=== PATIENT | male | born 1940 | race Caucasian/White ===

== ENCOUNTER 2019-01-03 09:38 | Inpatient (IN) | payer MEDICARE, OTHER ==
[~2019-01-03] VITALS: Ht 188 cm; Wt 95.0 kg
[~2019-01-03 09:38] MED LIST: ACET1TAB14 PO; CYAN-51 PO; DOCU-28 PO; ENOX40SY7 SQ; LISI-604 PO; MULT1TAB74 PO; SIMV80TA2 PO; SOTA80TA PO; WARF-55 PO
[2019-01-03 10:23] LABS: BASOPHILS % (AUTO) 0.4 % (0-1); EOSINOPHILS # (AUTO) 0.1 X10'3 (0-0.9); EOSINOPHILS % (AUTO) 1.1 % (0-6); HEMATOCRIT 38.7 % (42.0-52.0); HEMOGLOBIN 13.4 g/dl (14.0-17.9); LYMPHOCYTES # (AUTO) 0.7 X10'3 (1.1-4.8); LYMPHOCYTES % (AUTO) 9.2 % (21-51); MEAN CORPUSCULAR HEMOGLOBIN 33.7 PG (27.0-31.0); MEAN CORPUSCULAR HGB CONC 34.6 g/dL (33.0-36.5); MEAN CORPUSCULAR VOLUME 97.5 FL (78-98); MEAN PLATELET VOLUME 7.1 FL (7.4-10.4); MONOCYTES # (AUTO) 0.9 X10'3 (0-0.9); MONOCYTES % (AUTO) 11.1 % (2-12); NEUTROPHILS # (AUTO) 6.3 X10'3 (1.8-7.7); NEUTROPHILS % (AUTO) 78.2 % (42-75); PLATELET COUNT 172 X10'3 (140-440); RED BLOOD COUNT 3.97 X10'6 (4.70-6.10); RED CELL DISTRIBUTION WIDTH 14.3 % (11.5-14.5); WHITE BLOOD COUNT 8.1 X10'3 (4.5-11.0)
[2019-01-03 10:54] LABS: PARTIAL THROMBOPLASTIN TIME 45 SECONDS (22-32)
[2019-01-03 10:56] LABS: ALANINE AMINOTRANSFERASE 60 U/L (12-78); ALBUMIN/GLOBULIN RATIO 0.8 (1.1-1.5); ALKALINE PHOSPHATASE 73 IU/L (46-116); ANION GAP 11 (8-16); ASPARTATE AMINO TRANSFERASE 67 U/L (10-37); BILIRUBIN,TOTAL 1.2 MG/DL (0.1-1.0); BLOOD UREA NITROGEN 7 MG/DL (7-18); BUN/CREATININE RATIO 7.3 (5.4-32.0); CALCIUM 8.3 MG/DL (8.5-10.1); CHLORIDE 102 MMOL/L (99-107); CREATININE 0.96 MG/DL (0.60-1.10); GLUCOSE 114 MG/DL (70-104); MAGNESIUM 2.1 MG/DL (1.5-2.4); SODIUM 138 MMOL/L (135-145); TOTAL PROTEIN 6.9 G/DL (6.4-8.2); eGFR 76 ML/MIN
[2019-01-03] MEDS ORDERED: azithromycin/NS 500mg/250ml 250 ML IV ONE (11:05)
[2019-01-03] MEDS ORDERED: normal saline 1000ML IV soln IV ONE (11:05)
[2019-01-03] MEDS ORDERED: CefTRIAXone/D5W-Rocephin 1gm 50 ML IV ONE (11:05)
[2019-01-03] MEDS ORDERED: potassium Cl 20 mEq SR tablet PO STA (11:09)
[2019-01-03 11:10] LABS: POTASSIUM 2.7 MMOL/L (3.5-5.1)
[2019-01-03] MEDS ORDERED: potassium Cl 10 mEq/100mL bag IV ONE (11:10)
[2019-01-03 11:16] LABS: URINE AMPHETAMINE SCREEN NEGATIVE (Neg); URINE BARBITUATE SCREEN NEGATIVE (Neg); URINE BENZODIAZEPINES SCREEN NEGATIVE (Neg); URINE CANNABINOID SCREEN POSITIVE (Neg); URINE COCAINE SCREEN NEGATIVE (Neg); URINE METHADONE SCREEN NEGATIVE (Neg); URINE OPIATE SCREEN POSITIVE (Neg); URINE PHENCYCLIDINE SCREEN NEGATIVE (Neg)
--- NOTE | 2019-01-03 11:21 | NUR ---
Pt. transferred to CT scan assisted by [employer] at this time.
[2019-01-03 11:22] LABS: ETHANOL < 0.010 GM/DL (0.0-0.010)
--- NOTE | 2019-01-03 11:31 | NUR ---
PT. BACK FROM CT VIA W/C WITH COMPUTER FORENSIC SPECIALIST
[2019-01-03] MEDS ORDERED: acetaminophen 325mg tablet PO PRN (12:10)
[2019-01-03] MEDS ORDERED: magnesium 4gm in 100ml NS 100 ML IV PRN (12:10)
[2019-01-03] MEDS ORDERED: docusate sod 100mg capsule PO PRN (12:10)
[2019-01-03] MEDS ORDERED: potassium CL 10mEq/100ml bag 100 ML IV PRN ×2 (12:10)
[2019-01-03] MEDS ORDERED: ipratropium/albuterol 3ml nebule NEB PRN (12:10)
[2019-01-03] MEDS ORDERED: potassium Cl 20 mEq SR tablet PO PRN (12:10)
[2019-01-03] MEDS ORDERED: mag hydrox/Alum hydrox/simeth 30ml oral suspension PO PRN (12:10)
[2019-01-03] MEDS ORDERED: morphine 2 MG/ML inj. syringe IV PRN (12:10)
[2019-01-03] MEDS ORDERED: ondansetron/PF 4mg/2ml inj IV PRN (12:10)
[2019-01-03] MEDS ORDERED: magnesium 2GM in 50ml NS 50 ML IV PRN (12:10)
[2019-01-03] MEDS ORDERED: ISOS30TA6 PO (12:31)
[2019-01-03] MEDS ORDERED: RANO500T3 PO (12:31)
[2019-01-03] MEDS ORDERED: ROSU10TA2 PO (12:31)
[2019-01-03] MEDS ORDERED: ASCO500C15 PO (12:36)
--- NOTE | 2019-01-03 12:52 | NUR ---
relieving RN for lunch, pt is resting quietly on gurney, waiting for bed assignment
[2019-01-03] MEDS ORDERED: acetaminophen w/codeine (60MG) #4 tablet PO PRN (13:45)
[2019-01-03] MEDS: morphine 2 MG/ML inj. syringe IV PRN ×2 (14:11→21:17)
[2019-01-03 16:03] VITALS: BP 125/67
[2019-01-03 18:00] VITALS: BP 130/76
--- NOTE | 2019-01-03 18:53 | NUR ---
GAVE REPORT TO KELLY CAPONE.
[2019-01-03] MEDS: lactobacillus rhamnosus 10,000 MMU CELLS/CAPSULE PO SCH (19:31)
[2019-01-03] MEDS: sotalol 80mg tablet PO SCH (19:31)
[2019-01-03] MEDS: ranolazine 500mg SR tablet (Q12H) PO SCH (19:31)
[2019-01-03] MEDS: potassium Cl 20 mEq SR tablet PO PRN ×2 (19:31→23:09)
[2019-01-03] MEDS ORDERED: warfarin 5mg tablet PO ONE (21:00)
[2019-01-03] MEDS: diatr meglu/diatrizoate 30ml oral sol.-(3 dose) bottle PO SCH (21:26)
[2019-01-03 22:00] VITALS: BP 117/84
[2019-01-04] VITALS (7 sets, daily range): BP systolic 104–120; BP diastolic 57–81
[2019-01-04] MEDS: morphine 2 MG/ML inj. syringe IV PRN ×2 (02:38→11:59)
--- NOTE | 2019-01-04 03:36 | NUR ---
tele reported svt for 7 seconds. patient asymptomatic. VSS.
--- NOTE | 2019-01-04 06:15 | NUR ---
Patient in room ORTH[facility] 4020. I have received report from Aliza CAPONE and had the opportunity to ask questions and assume patient care.
--- NOTE | 2019-01-04 06:27 | NUR ---
reported to days. noted pt awaiting CT abd and MRI today. EEG completed yesterday awaiting results
[2019-01-04 06:36] LABS: BASOPHILS % (AUTO) 0.5 % (0-1); EOSINOPHILS # (AUTO) 0.1 X10'3 (0-0.9); EOSINOPHILS % (AUTO) 2.1 % (0-6); HEMATOCRIT 34.8 % (42.0-52.0); HEMOGLOBIN 12.1 g/dl (14.0-17.9); LYMPHOCYTES # (AUTO) 0.8 X10'3 (1.1-4.8); LYMPHOCYTES % (AUTO) 13.1 % (21-51); MEAN CORPUSCULAR HGB CONC 34.8 g/dL (33.0-36.5); MEAN CORPUSCULAR VOLUME 97.7 FL (78-98); MEAN PLATELET VOLUME 7.9 FL (7.4-10.4); MONOCYTES # (AUTO) 0.6 X10'3 (0-0.9); MONOCYTES % (AUTO) 10.2 % (2-12); NEUTROPHILS # (AUTO) 4.6 X10'3 (1.8-7.7); NEUTROPHILS % (AUTO) 74.1 % (42-75); PLATELET COUNT 156 X10'3 (140-440); RED BLOOD COUNT 3.56 X10'6 (4.70-6.10); RED CELL DISTRIBUTION WIDTH 14.6 % (11.5-14.5); WHITE BLOOD COUNT 6.1 X10'3 (4.5-11.0)
[2019-01-04] MEDS: diatr meglu/diatrizoate 30ml oral sol.-(3 dose) bottle PO SCH ×2 (07:42→10:04)
[2019-01-04] MEDS ORDERED: non-formulary drug (Rosuvastatin Calcium* (Crestor*) 1 TAB) PO SCH (08:00)
[2019-01-04] MEDS ORDERED: non-formulary drug (Multivitamins 1 TAB) PO SCH (08:00)
[2019-01-04] MEDS: K and/or MAG REPLACEMENT MC SCH (08:00)
[2019-01-04] MEDS ORDERED: lisinopril 5mg tablet PO SCH (08:00)
[2019-01-04] MEDS ORDERED: non-formulary drug (Ascorbic Acid (Vitamin C) 1 CAP) PO SCH (08:00)
[2019-01-04] MEDS: cyanocobalamin 500mcg tablet PO SCH (08:04)
[2019-01-04] MEDS: multivitamins, therapeutics tablet PO SCH (08:04)
[2019-01-04] MEDS: lactobacillus rhamnosus 10,000 MMU CELLS/CAPSULE PO SCH ×2 (08:04→20:43)
[2019-01-04] MEDS: ascorbic acid 500mg tablet PO SCH (08:04)
[2019-01-04] MEDS: isosorbide mononitrate 30mg tab.SR.24H PO SCH (08:05)
[2019-01-04] MEDS: atorvastatin 20mg tablet PO SCH (08:05)
[2019-01-04] MEDS: sotalol 80mg tablet PO SCH ×2 (08:05→20:43)
[2019-01-04] MEDS: ranolazine 500mg SR tablet (Q12H) PO SCH ×2 (08:12→20:44)
[2019-01-04] MEDS ORDERED: iohexol 300mg/ml 100ml inj. ONE (08:13)
[2019-01-04] MEDS: CefTRIAXone/D5W-Rocephin 1gm 50 ML IV SCH (08:59)
[2019-01-04 09:07] LABS: ALANINE AMINOTRANSFERASE 44 U/L (12-78); ALBUMIN 2.9 G/DL (3.4-5.0); ALBUMIN/GLOBULIN RATIO 0.8 (1.1-1.5); ALKALINE PHOSPHATASE 73 IU/L (46-116); ANION GAP 7 (8-16); ASPARTATE AMINO TRANSFERASE 38 U/L (10-37); BILIRUBIN,TOTAL 1.5 MG/DL (0.1-1.0); BLOOD UREA NITROGEN 8 MG/DL (7-18); CALCIUM 8.3 MG/DL (8.5-10.1); CHLORIDE 104 MMOL/L (99-107); CHOL/HDL RATIO 4.1 (0.00-4.99); CHOLESTEROL 82 MG/DL (0-200); GLUCOSE 96 MG/DL (70-104); HDL CHOLESTEROL 20 MG/DL (35-60); LDL CHOLESTEROL 52 MG/DL (50-100); SODIUM 138 MMOL/L (135-145); TOTAL CARBON DIOXIDE 26.6 MMOL/L (24-32); TOTAL PROTEIN 6.6 G/DL (6.4-8.2); TRIGLYCERIDES 75 MG/DL (20-135); eGFR > 90 ML/MIN
[2019-01-04 15:39] LABS: CLARITY,URINE CLEAR (Clear); COLOR,URINE YELLOW (Yellow); GLUCOSE, URINE NEGATIVE (Neg); KETONES,URINE NEGATIVE (Neg); LEUKOCYTE ESTERASE ,URINE NEGATIVE (Neg); NITRITES, URINE NEGATIVE (Neg); OCCULT BLOOD,URINE TRACE-INTACT (Neg); PH,URINE 6.5 (4.8-8.0); PROTEIN,URINE NEGATIVE (Neg)
[2019-01-04 15:43] LABS: UA COLLECTION TYPE CLN CATCH MIDSTREAM
[2019-01-04 15:56] LABS: BACTERIA,URINE NONE SEEN /HPF (Neg); RBC,URINE 0-2 /HPF (0-2); SQUAMOUS EPITHELIAL CELL,UR FEW /LPF (FEW); WBC,URINE 0-4 /HPF (0-4)
--- NOTE | 2019-01-04 18:14 | NUR ---
Problems reprioritized. Patient report given, questions answered & plan of care reviewed with Lexi CAPONE.
--- NOTE | 2019-01-04 18:33 | NUR ---
Patient in room ORTHO 4020. I have received report from LIBORIO Abreu and had the opportunity to ask questions and assume patient care.
[2019-01-04] MEDS ORDERED: warfarin 4mg tablet PO ONE (21:00)
[2019-01-05 02:00] VITALS: BP 105/76
[2019-01-05 06:00] VITALS: BP 133/83
[2019-01-05 06:12] LABS: BASOPHILS % (AUTO) 0.5 % (0-1); EOSINOPHILS # (AUTO) 0.1 X10'3 (0-0.9); EOSINOPHILS % (AUTO) 2.2 % (0-6); HEMATOCRIT 33.9 % (42.0-52.0); HEMOGLOBIN 11.9 g/dl (14.0-17.9); LYMPHOCYTES # (AUTO) 0.8 X10'3 (1.1-4.8); LYMPHOCYTES % (AUTO) 14.5 % (21-51); MEAN CORPUSCULAR HEMOGLOBIN 34.1 PG (27.0-31.0); MEAN CORPUSCULAR HGB CONC 35.2 g/dL (33.0-36.5); MEAN PLATELET VOLUME 7.1 FL (7.4-10.4); MONOCYTES # (AUTO) 0.5 X10'3 (0-0.9); MONOCYTES % (AUTO) 8.6 % (2-12); NEUTROPHILS # (AUTO) 3.9 X10'3 (1.8-7.7); NEUTROPHILS % (AUTO) 74.2 % (42-75); PLATELET COUNT 158 X10'3 (140-440); RED CELL DISTRIBUTION WIDTH 14.4 % (11.5-14.5); WHITE BLOOD COUNT 5.3 X10'3 (4.5-11.0)
--- NOTE | 2019-01-05 06:15 | NUR ---
Patient in room ORTHO 4020. I have received report from Lexi CAPONE and had the opportunity to ask questions and assume patient care.
--- NOTE | 2019-01-05 06:20 | NUR ---
Problems reprioritized. Patient report given, questions answered & plan of care reviewed with LIBORIO Abreu.
[2019-01-05 06:26] LABS: ALANINE AMINOTRANSFERASE 36 U/L (12-78); ALBUMIN 2.7 G/DL (3.4-5.0); ALBUMIN/GLOBULIN RATIO 0.8 (1.1-1.5); ALKALINE PHOSPHATASE 73 IU/L (46-116); ANION GAP 9 (8-16); ASPARTATE AMINO TRANSFERASE 29 U/L (10-37); BILIRUBIN,TOTAL 1.2 MG/DL (0.1-1.0); BLOOD UREA NITROGEN 8 MG/DL (7-18); BUN/CREATININE RATIO 10.1 (5.4-32.0); CALCIUM 8.9 MG/DL (8.5-10.1); CHLORIDE 106 MMOL/L (99-107); CREATININE 0.79 MG/DL (0.60-1.10); GLUCOSE 104 MG/DL (70-104); MAGNESIUM 2.2 MG/DL (1.5-2.4); POTASSIUM 3.8 MMOL/L (3.5-5.1); SODIUM 139 MMOL/L (135-145); TOTAL CARBON DIOXIDE 23.6 MMOL/L (24-32); eGFR > 90 ML/MIN
[2019-01-05] MEDS: K and/or MAG REPLACEMENT MC SCH (08:00)
[2019-01-05] MEDS: lactobacillus rhamnosus 10,000 MMU CELLS/CAPSULE PO SCH ×2 (08:08→19:25)
[2019-01-05] MEDS: isosorbide mononitrate 30mg tab.SR.24H PO SCH (08:08)
[2019-01-05] MEDS: CefTRIAXone/D5W-Rocephin 1gm 50 ML IV SCH (08:09)
[2019-01-05] MEDS: ascorbic acid 500mg tablet PO SCH (08:09)
[2019-01-05] MEDS: multivitamins, therapeutics tablet PO SCH (08:09)
[2019-01-05] MEDS: cyanocobalamin 500mcg tablet PO SCH (08:09)
[2019-01-05] MEDS: atorvastatin 20mg tablet PO SCH (08:09)
[2019-01-05] MEDS: sotalol 80mg tablet PO SCH ×2 (08:09→19:25)
[2019-01-05] MEDS: ranolazine 500mg SR tablet (Q12H) PO SCH ×2 (08:09→19:24)
[2019-01-05 10:00] VITALS: BP 128/82
[2019-01-05] MEDS ORDERED: sotalol 80mg tablet PO ONE (10:15)
[2019-01-05 14:00] VITALS: BP 119/80
--- NOTE | 2019-01-05 14:07 | NUR ---
Nutrition consult: RE "20# wt loss." Pt admit w/ weakness and shaking found to have lung infiltrates and diffuse fatty liver per abdomen CT. Neuro consult negative for additional findings per MD note. Pt did not meet nursing malnutrition triggers; has no edema/wounds, normal strength, current wt is pt stated. Pt does not meet malnutrition criteria at this time. Pt currently on unlisted diet "snacks between meals" and high kcal needs per MD note. Pt PO 75-100% heart healthy meals meeting needs; no additional kcal/proteins needed at this time given current wt and DX. RD d/w RN can send double proteins TIDWM given good appetite and RN agrees; dietary notified. LBM 01/04. No nutrition concerns at this time; will continue to monitor. Rec: 1. continue heart healthy diet per MD 2. double proteins TIDWM 3. wt per rx Addendum: 01/05/19 at [address] Amended: Links added.
[2019-01-05 18:00] VITALS: BP 106/58
--- NOTE | 2019-01-05 18:00 | NUR ---
Patient in room ORTHO 4020. I have received report from [place] and had the opportunity to ask questions and assume patient care.
--- NOTE | 2019-01-05 18:29 | NUR ---
Problems reprioritized. Patient report given, questions answered & plan of care reviewed with Can CAPONE and Lincoln RN.
[2019-01-05] MEDS ORDERED: warfarin 2.5mg tablet PO ONE (21:00)
[2019-01-05] MEDS: acetaminophen w/codeine (30MG) #3 tablet PO PRN (21:24)
[2019-01-05 22:00] VITALS: BP 102/65
[2019-01-06 02:00] VITALS: BP 130/84
[2019-01-06] MEDS: acetaminophen w/codeine (30MG) #3 tablet PO PRN (05:30)
[2019-01-06 06:00] VITALS: BP 99/63
--- NOTE | 2019-01-06 06:10 | NUR ---
Patient in room ORTHO 4020. I have received report from Can Rodriguez and Will and had the opportunity to ask questions and assume patient care.
[2019-01-06 06:11] LABS: BASOPHILS % (AUTO) 0.6 % (0-1); EOSINOPHILS # (AUTO) 0.1 X10'3 (0-0.9); HEMATOCRIT 34.8 % (42.0-52.0); HEMOGLOBIN 12.2 g/dl (14.0-17.9); MEAN CORPUSCULAR HEMOGLOBIN 34.1 PG (27.0-31.0); MEAN CORPUSCULAR HGB CONC 34.9 g/dL (33.0-36.5); MEAN CORPUSCULAR VOLUME 97.7 FL (78-98); MEAN PLATELET VOLUME 7.4 FL (7.4-10.4); MONOCYTES # (AUTO) 0.5 X10'3 (0-0.9); MONOCYTES % (AUTO) 8.3 % (2-12); NEUTROPHILS # (AUTO) 3.9 X10'3 (1.8-7.7); NEUTROPHILS % (AUTO) 71.1 % (42-75); PLATELET COUNT 197 X10'3 (140-440); RED BLOOD COUNT 3.57 X10'6 (4.70-6.10); RED CELL DISTRIBUTION WIDTH 14.2 % (11.5-14.5); WHITE BLOOD COUNT 5.5 X10'3 (4.5-11.0)
--- NOTE | 2019-01-06 06:40 | NUR ---
Problems reprioritized. Patient report given, questions answered & plan of care reviewed with
[2019-01-06 06:42] LABS: ALANINE AMINOTRANSFERASE 38 U/L (12-78); ALBUMIN/GLOBULIN RATIO 0.9 (1.1-1.5); ALKALINE PHOSPHATASE 78 IU/L (46-116); ANION GAP 11 (8-16); ASPARTATE AMINO TRANSFERASE 27 U/L (10-37); BILIRUBIN,TOTAL 1.2 MG/DL (0.1-1.0); BLOOD UREA NITROGEN 12 MG/DL (7-18); BUN/CREATININE RATIO 13.6 (5.4-32.0); CALCIUM 8.8 MG/DL (8.5-10.1); CHLORIDE 107 MMOL/L (99-107); CREATININE 0.88 MG/DL (0.60-1.10); GLUCOSE 104 MG/DL (70-104); MAGNESIUM 2.1 MG/DL (1.5-2.4); POTASSIUM 3.8 MMOL/L (3.5-5.1); SODIUM 142 MMOL/L (135-145); TOTAL PROTEIN 6.5 G/DL (6.4-8.2); eGFR 84 ML/MIN
[2019-01-06] MEDS: lactobacillus rhamnosus 10,000 MMU CELLS/CAPSULE PO SCH (07:19)
[2019-01-06] MEDS: sotalol 80mg tablet PO SCH (07:19)
[2019-01-06] MEDS: isosorbide mononitrate 30mg tab.SR.24H PO SCH (07:20)
[2019-01-06] MEDS: atorvastatin 20mg tablet PO SCH (07:20)
[2019-01-06] MEDS: ranolazine 500mg SR tablet (Q12H) PO SCH (07:20)
[2019-01-06] MEDS: multivitamins, therapeutics tablet PO SCH (07:21)
[2019-01-06] MEDS: ascorbic acid 500mg tablet PO SCH (07:21)
[2019-01-06] MEDS: cyanocobalamin 500mcg tablet PO SCH (07:21)
--- NOTE | 2019-01-06 07:50 | NUR ---
PAGER ID: [phone] MESSAGE: Chao Galloway, RE Mr. Alfonso in [id number], unable to obtain IV access, are we able to change ABX to PO? Please advise, thank you Raissa #[phone] IV attempt X 2
[2019-01-06] MEDS: K and/or MAG REPLACEMENT MC SCH (08:00)
[2019-01-06] MEDS: CefTRIAXone/D5W-Rocephin 1gm 50 ML IV SCH (09:00)
[2019-01-06] MEDS ORDERED: HYDROcodone/acetaminophen 5mg/325mg tablet PO PRN (09:05)
[2019-01-06 10:00] VITALS: BP 101/62
--- NOTE | 2019-01-06 15:31 | NUR ---
PAGER ID: [phone] MESSAGE: Chao Galloway, RE: Mr. Alfonso in [id number], is he going to go home with ABX? Please advise, Thank you Raissa
--- NOTE | 2019-01-06 15:32 | NUR ---
Return call from MD, no ABX needed per MD.
--- NOTE | 2019-01-06 15:55 | NUR ---
Reviewed discharge instructions with pt. Pt verbalized understanding. Pt currently getting dressed, awaiting on spouse to pick him up. Pt is alert, oriented and in good spirits. Pt does not have any c/o pain at this time.
--- NOTE | 2019-01-06 16:25 | NUR ---
Wheeled pt downstairs to be driven home by his spouse.
[2019-01-06] MEDS ORDERED: sotalol 80mg tablet PO SCH (20:00)
[2019-01-06] MEDS ORDERED: warfarin 2.5mg tablet PO ONE (21:00)
== END 2019-01-06 16:00 | disposition home or self-care (01) | DRG 391 ==
LOC: ER 09:39 → ORTHO 4S 15:00
PROVIDERS: ADMIT Family Medicine; ATTEND Family Medicine
PROC: BW38YZZ Magnetic Resonance Imaging (MRI) of Head using Other Contrast (ICD-10-PCS; principal; 2019-01-04)
DX: K52.9 Noninfective gastroenteritis and colitis, unspecified (principal); J18.1 Lobar pneumonia, unspecified organism; J90 Pleural effusion, not elsewhere classified; I48.2 Chronic atrial fibrillation; I10 Essential (primary) hypertension; E87.6 Hypokalemia; G89.29 Other chronic pain; M48.061 Spinal stenosis, lumbar region without neurogenic claudication; R15.9 Full incontinence of feces; K76.0 Fatty (change of) liver, not elsewhere classified; F12.90 Cannabis use, unspecified, uncomplicated; R32 Unspecified urinary incontinence; R63.4 Abnormal weight loss; H53.8 Other visual disturbances; M54.9 Dorsalgia, unspecified; R00.0 Tachycardia, unspecified; E78.00 Pure hypercholesterolemia, unspecified; E78.5 Hyperlipidemia, unspecified; G62.9 Polyneuropathy, unspecified; I25.10 Atherosclerotic heart disease of native coronary artery without angina pectoris; Z79.01 Long term (current) use of anticoagulants; Z80.8 Family history of malignant neoplasm of other organs or systems; Z95.1 Presence of aortocoronary bypass graft; Z79.899 Other long term (current) drug therapy; Z87.891 Personal history of nicotine dependence; Z68.26 Body mass index [BMI] 26.0-26.9, adult
CPT/HCPCS: 36415; 70450; 70544; 70547; 70551; 71045; 74177; 80053; 80061; 80305; 80320; 81001; 83605; 83735; 83880; 84132; 84145; 84484; 85025; 85610; 85730; 87040; 87070; 87081; 93005; 93306; 93880; 94640; 94667; 94760; 96365; 97110; 97116; 97162; 97530; 99285; G0378; J0456; J0696; J2270; J3480; Q9963; Q9967

== ENCOUNTER 2021-04-10 08:13 | Day surgery (SDC) | payer OTHER ==
[2021-04-02 11:34] LABS: BASOPHILS % (AUTO) 0.5 % (0-1); EOSINOPHILS # (AUTO) 0.1 X10'3 (0-0.9); EOSINOPHILS % (AUTO) 1.1 % (0-6); LYMPHOCYTES # (AUTO) 1.2 X10'3 (1.1-4.8); LYMPHOCYTES % (AUTO) 18.5 % (21-51); MEAN CORPUSCULAR HEMOGLOBIN 34.8 PG (27.0-31.0); MEAN CORPUSCULAR HGB CONC 35.4 g/dL (33.0-36.5); MEAN CORPUSCULAR VOLUME 98.3 FL (78-98); MEAN PLATELET VOLUME 7.9 FL (7.4-10.4); MONOCYTES # (AUTO) 0.6 X10'3 (0-0.9); MONOCYTES % (AUTO) 9.6 % (2-12); NEUTROPHILS # (AUTO) 4.6 X10'3 (1.8-7.7); NEUTROPHILS % (AUTO) 70.3 % (42-75); PRE OP HEMOGLOBIN 13.8 g/dL (14.0-17.9); PRE OP PLATELET COUNT 152 X10'3 (140-440); RED BLOOD COUNT 3.97 X10'6 (4.70-6.10); RED CELL DISTRIBUTION WIDTH 14.5 % (11.5-14.5)
[2021-04-02 12:02] LABS: ALBUMIN 4.4 G/DL (3.4-5.0); ALBUMIN/GLOBULIN RATIO 1.1 (1.1-1.5); ALKALINE PHOSPHATASE 67 IU/L (46-116); BLOOD UREA NITROGEN 23 MG/DL (7-18); BUN/CREATININE RATIO 16.4 (5.4-32.0); CALCIUM 9.3 MG/DL (8.5-10.1); CHLORIDE 102 MMOL/L (99-107); PRE OP ALT 24 U/L (30-65); PRE OP ANION GAP 11 (8-16); PRE OP AST 18 U/L (10-37); PRE OP BILIRUB, TOTAL 1.1 MG/DL (0.0-1.0); PRE OP GLUCOSE 107 MG/DL (70-104); PRE OP POTASSIUM 4.1 MMOL/L (3.4-5.1); PRE OP SODIUM 140 MMOL/L (135-145); TOTAL CARBON DIOXIDE 27.5 MMOL/L (24-32); TOTAL PROTEIN 8.4 G/DL (6.4-8.2); eGFR 49 ML/MIN
[~2021-04-10] VITALS: Ht 188 cm; Wt 95.7 kg
[~2021-04-10 08:13] MED LIST changes: -ACET1TAB14 PO; +DOCUMENT DATE & TIME OF BETA-BLOCKER PO ONE; -ENOX40SY7 SQ; +ISOS30TA84 PO; -LISI-604 PO; +LISI5TAB22 PO; +METO100T7 PO; -MULT1TAB74 PO; +RANO500T3 PO; +ROSU10TA2 PO; -SIMV80TA2 PO; -SOTA80TA PO; +cefazolin/dext.iso 2gm/50ml IV ONE; +famotidine 20mg tablet PO ONE; +ringers solution, lacted 1,000 ML IV SCH; +vancomycin 1,500 MG in NS 300ml IV soln IV ONE
[2021-04-10 08:30] VITALS: BP 124/81
[2021-04-10] MEDS ORDERED: BUPIVAcaine/PF 2.5 mg/ml (0.25%) 30ml vial ONE (09:22)
[2021-04-10] MEDS ORDERED: methylPREDNISolone sod succ 125mg/2ml vial ONE (09:22)
[2021-04-10] MEDS ORDERED: morphine 2 MG/ML inj. syringe IV PRN (09:25)
[2021-04-10] MEDS ORDERED: hydrALAZINE 20mg/ml inj. IV PRN (09:25)
[2021-04-10] MEDS ORDERED: acetaminophen 1,000mg/100ml IV 100 ML IV PRN (09:25)
[2021-04-10] MEDS ORDERED: morphine 4 MG/ML inj SYRINge IV PRN (09:25)
[2021-04-10] MEDS ORDERED: meperidine/PF 25mg/ml syringe IV PRN ×3 (09:25)
[2021-04-10] MEDS ORDERED: proCHLORperazine 10 MG/2 ml inj IV PRN (09:25)
[2021-04-10] MEDS ORDERED: ondansetron/PF 4mg/2ml inj IV PRN (09:25)
[2021-04-10] MEDS ORDERED: ringers solution, lacted 1,000 ML IV SCH (09:25)
[2021-04-10] MEDS ORDERED: labetalol 20mg/4ml (5mg/ml) syringe IV PRN (09:25)
[2021-04-10 10:35] LABS: PARTIAL THROMBOPLASTIN TIME 33 SECONDS (22-32)
[2021-04-10] MEDS ORDERED: fentaNYL/PF 50MCG/1 ML 2ML syringe ONE (10:58)
[2021-04-10] MEDS ORDERED: midazolam 1 mg/ML 2ml injection ONE (10:58)
[2021-04-10] MEDS ORDERED: LIDOcaine 0.5% (5mg/ml) 50ml vial ONE (11:44)
[2021-04-10 11:53] VITALS: BP 136/92
--- NOTE | 2021-04-10 11:53 | NUR ---
Received from OR via [facility] , accompanied by Anesthesiologist JALIL and report given by Anesthesiolgist. PATIENT WITH 20G PV IN RIN RIGHT UE RUNNING LR AT 100. LEFT WRIST AND ELBOW DRESSING IS CDI. + CAP REFILL TO FINGERS AND ARE ALL PWD. ESCOBAR. DENIES PAIN AT THIS TIME. VSS. Addendum: 04/10/21 at 1209 by Neri Richard RN, RN Amended: Links added.
[2021-04-10 12:00] VITALS: BP 122/96
[2021-04-10 12:10] VITALS: BP 138/102
[2021-04-10 12:20] VITALS: BP 130/99
[2021-04-10 12:30] VITALS: BP 122/89
--- NOTE | 2021-04-10 12:43 | NUR ---
ALL DISCHARGE CRITERIA HAS BEEN MET. VSS, PAIN AT A TOLERABLE LEVEL, ABLE TO SAFELY AMBULATE AND TRANSFER SELF. IV TAKEN OUT WITHOUT ANY COMPLICATIONS. ALL DISCHARGE INSTRUCTIONS COVERED WITH PATIENT AND ALL QUESTIONS ANSWERED. PATIENT TAKEN OUT VIA WHEELCHAIR TO PERSONAL VEHICLE WHERE FAMILY/FRIEND DROVE PATIENT HOME. Addendum: 04/10/21 at 1249 by Neri Richard RN, RN Amended: Links added.
== END 2021-04-10 12:43 | disposition home or self-care (01) ==
LOC: PAS 08:13
PROVIDERS: ATTEND Orthopaedic Surgery
DX: G56.02 Carpal tunnel syndrome, left upper limb (principal); G56.22 Lesion of ulnar nerve, left upper limb; I25.10 Atherosclerotic heart disease of native coronary artery without angina pectoris; I10 Essential (primary) hypertension; E78.5 Hyperlipidemia, unspecified; E66.8 Other obesity; Z68.29 Body mass index [BMI] 29.0-29.9, adult; M18.0 Bilateral primary osteoarthritis of first carpometacarpal joints; G89.29 Other chronic pain; I25.2 Old myocardial infarction; I48.91 Unspecified atrial fibrillation; Z20.822 Contact with and (suspected) exposure to COVID-19; Z79.899 Other long term (current) drug therapy; Z87.891 Personal history of nicotine dependence; Z72.89 Other problems related to lifestyle; Z95.1 Presence of aortocoronary bypass graft; Z98.890 Other specified postprocedural states; Z86.73 Personal history of transient ischemic attack (TIA), and cerebral infarction without residual deficits
CPT/HCPCS: 36415; 64719; 64721; 80053; 85025; 85610; 85730; 93005; J0690; J2250; J2930; J3010; J3370; J3490; J7030; J7040; J7120; U0003; U0005; Z7506; Z7512; A4215; A4618; A6250; A6449; A6455; A7000

== ENCOUNTER 2021-05-27 17:14 | Emergency (ER) | payer OTHER ==
[~2021-05-27] VITALS: Ht 188 cm; Wt 100.0 kg
[~2021-05-27 17:14] MED LIST changes: -DOCUMENT DATE & TIME OF BETA-BLOCKER PO ONE; -cefazolin/dext.iso 2gm/50ml IV ONE; -famotidine 20mg tablet PO ONE; -ringers solution, lacted 1,000 ML IV SCH; -vancomycin 1,500 MG in NS 300ml IV soln IV ONE
[2021-05-27 17:52] LABS: BASOPHILS # (AUTO) 0.1 X10'3 (0-0.2); BASOPHILS % (AUTO) 0.9 % (0-1); EOSINOPHILS # (AUTO) 0.2 X10'3 (0-0.9); EOSINOPHILS % (AUTO) 2.8 % (0-6); HEMATOCRIT 35.6 % (42.0-52.0); HEMOGLOBIN 12.4 g/dl (14.0-17.9); LYMPHOCYTES # (AUTO) 1.2 X10'3 (1.1-4.8); LYMPHOCYTES % (AUTO) 17.4 % (21-51); MEAN CORPUSCULAR HEMOGLOBIN 35.6 PG (27.0-31.0); MEAN CORPUSCULAR HGB CONC 34.9 g/dL (33.0-36.5); MEAN CORPUSCULAR VOLUME 101.8 FL (78-98); MEAN PLATELET VOLUME 7.6 FL (7.4-10.4); MONOCYTES # (AUTO) 0.7 X10'3 (0-0.9); MONOCYTES % (AUTO) 9.8 % (2-12); NEUTROPHILS # (AUTO) 4.6 X10'3 (1.8-7.7); NEUTROPHILS % (AUTO) 69.1 % (42-75); PLATELET COUNT 155 X10'3 (140-440); RED CELL DISTRIBUTION WIDTH 14.3 % (11.5-14.5); WHITE BLOOD COUNT 6.7 X10'3 (4.5-11.0)
[2021-05-27 18:04] LABS: APTT 28 SECONDS (22-32)
[2021-05-27 18:15] LABS: ALANINE AMINOTRANSFERASE 19 U/L (12-78); ALBUMIN 3.8 G/DL (3.4-5.0); ALBUMIN/GLOBULIN RATIO 1.2 (1.1-1.5); ALKALINE PHOSPHATASE 64 IU/L (46-116); ANION GAP 9 (8-16); ASPARTATE AMINO TRANSFERASE 16 U/L (10-37); BLOOD UREA NITROGEN 28 MG/DL (7-18); BUN/CREATININE RATIO 19.6 (5.4-32.0); CALCIUM 8.4 MG/DL (8.5-10.1); CHLORIDE 105 MMOL/L (99-107); CREATININE 1.43 MG/DL (0.60-1.10); GLUCOSE 130 MG/DL (70-104); SODIUM 139 MMOL/L (135-145); TOTAL CARBON DIOXIDE 24.6 MMOL/L (24-32); eGFR 48 ML/MIN
--- NOTE | 2021-05-27 18:16 | NUR ---
spoke to dr ramsay and informed that pt was incontinent when we transfer the pt from [facility] to [facility] and pt does not remember the epidsode of loc ,pt does not have head strike ,do we need to scan his head ?head ct ?as per md he will put the orders in.
[2021-05-27 18:17] LABS: MAGNESIUM 2.1 MG/DL (1.5-2.4)
[2021-05-27 18:24] VITALS: BP 117/81
[2021-05-27 18:46] LABS: ETHANOL < 0.010 GM/DL (0.0-0.010)
[2021-05-27] MEDS ORDERED: warfarin 5mg tablet PO STA (19:17)
== END 2021-05-27 20:08 | disposition home or self-care (01) ==
LOC: ER 17:15
DX: R55 Syncope and collapse (principal); R61 Generalized hyperhidrosis; I48.91 Unspecified atrial fibrillation; I25.10 Atherosclerotic heart disease of native coronary artery without angina pectoris; E78.00 Pure hypercholesterolemia, unspecified; I10 Essential (primary) hypertension; G89.29 Other chronic pain; Z95.5 Presence of coronary angioplasty implant and graft; Z85.819 Personal history of malignant neoplasm of unspecified site of lip, oral cavity, and pharynx; Z79.899 Other long term (current) drug therapy; Z79.01 Long term (current) use of anticoagulants
CPT/HCPCS: 36415; 70450; 71045; 80053; 80320; 83735; 83880; 84484; 85025; 85610; 85730; 93005; 99285

== ENCOUNTER 2023-08-21 16:07 | Inpatient (IN) | payer OTHER ==
[~2023-08-21] VITALS: Ht 185.4 cm; Wt 93.0 kg
[~2023-08-21 16:07] MED LIST changes: +CYAN-104 PO; -CYAN-51 PO
[2023-08-21 17:09] LABS: BASOPHILS # (AUTO) 0.1 X10'3 (0-0.2); BASOPHILS % (AUTO) 0.8 % (0-1); EOSINOPHILS # (AUTO) 0.2 X10'3 (0-0.9); EOSINOPHILS % (AUTO) 2.7 % (0-6); HEMATOCRIT 37.2 % (42.0-52.0); HEMOGLOBIN 13.1 g/dl (14.0-17.9); LYMPHOCYTES # (AUTO) 0.6 X10'3 (1.1-4.8); LYMPHOCYTES % (AUTO) 8.4 % (21-51); MEAN CORPUSCULAR HEMOGLOBIN 33.6 PG (27.0-31.0); MEAN CORPUSCULAR HGB CONC 35.2 g/dL (33.0-36.5); MEAN CORPUSCULAR VOLUME 95.4 FL (78-98); MEAN PLATELET VOLUME 8.1 FL (7.4-10.4); MONOCYTES # (AUTO) 0.6 X10'3 (0-0.9); MONOCYTES % (AUTO) 8.3 % (2-12); NEUTROPHILS # (AUTO) 5.3 X10'3 (1.8-7.7); NEUTROPHILS % (AUTO) 79.8 % (42-75); PLATELET COUNT 187 X10'3 (140-440); RED CELL DISTRIBUTION WIDTH 15.9 % (11.5-14.5); WHITE BLOOD COUNT 6.7 X10'3 (4.5-11.0)
[2023-08-21 17:36] LABS: ALBUMIN 3.3 G/DL (3.4-5.0); ANION GAP 10 (8-16); BLOOD UREA NITROGEN 16 MG/DL (7-18); BUN/CREATININE RATIO 10.9 (10.0-20.0); CALCIUM 8.2 MG/DL (8.5-10.1); CHLORIDE 100 MMOL/L (99-107); CREATININE 1.47 MG/DL (0.60-1.10); GLUCOSE 112 MG/DL (70-104); POTASSIUM 4.8 MMOL/L (3.5-5.1); PRO BRAIN NATRIURETIC PEPTIDE 2181 PG/ML (0-450); SODIUM 134 MMOL/L (135-145); TOTAL CARBON DIOXIDE 24.2 MMOL/L (24-32); eCRCL 47 ML/MIN; eGFR 46 ML/MIN
[2023-08-21] MEDS: furosemide 10 MG/1 ML 10ml inj IV ONE ×2 (18:27→18:28)
[2023-08-21 19:24] LABS: BILIRUBIN,URINE NEGATIVE (Neg); CLARITY,URINE CLEAR (Clear); COLOR,URINE YELLOW (Yellow); GLUCOSE, URINE >=1000 mg/dl (Neg); KETONES,URINE NEGATIVE (Neg); LEUKOCYTE ESTERASE ,URINE NEGATIVE (Neg); NITRITES, URINE NEGATIVE (Neg); OCCULT BLOOD,URINE NEGATIVE (Neg); PROTEIN,URINE NEGATIVE (Neg)
[2023-08-21 19:25] LABS: UA COLLECTION TYPE CLN CATCH MIDSTREAM
[2023-08-21 19:32] LABS: BACTERIA,URINE NONE SEEN /HPF (Neg); MUCUS STRANDS NONE SEEN /LPF (Neg); RBC,URINE 0-2 /HPF (0-2); SQUAMOUS EPITHELIAL CELL,UR FEW /LPF (FEW); WBC,URINE NONE SEEN /HPF (0-4)
[2023-08-21] MEDS ORDERED: UNABLE TO OBTAIN (19:39)
[2023-08-21] MEDS ORDERED: acetaminophen 325mg tablet PO PRN (19:40)
[2023-08-21] MEDS ORDERED: magnesium 4gm in 100ml NS 100 ML IV PRN (19:40)
[2023-08-21] MEDS ORDERED: magnesium 2GM in 50ml NS 50 ML IV PRN (19:40)
[2023-08-21] MEDS ORDERED: potassium Cl 40MEQ/1/2NS 520ml 520 ML IV PRN (19:40)
[2023-08-21] MEDS ORDERED: ondansetron/PF 4mg/2ml inj IV PRN (19:40)
[2023-08-21] MEDS ORDERED: potassium Cl 20 mEq SR tablet PO PRN ×2 (19:40)
[2023-08-21] MEDS ORDERED: magnesium Cl slow-release 64mg tablet PO PRN (19:40)
[2023-08-21] MEDS: diltiazem-NS 100mg/100ml 100 ML IV SCH (20:10)
[2023-08-21] MEDS: normal saline 1000ml 1,000 ML IV SCH (20:10)
[2023-08-21] MEDS: heparin, porcine 5000 units/ml vial SQ SCH (20:11)
[2023-08-21 20:28] LABS: URINE AMPHETAMINE SCREEN NEGATIVE (Neg); URINE BARBITUATE SCREEN NEGATIVE (Neg); URINE BENZODIAZEPINES SCREEN NEGATIVE (Neg); URINE CANNABINOID SCREEN POSITIVE (Neg); URINE COCAINE SCREEN NEGATIVE (Neg); URINE METHADONE SCREEN NEGATIVE (Neg); URINE OPIATE SCREEN NEGATIVE (Neg); URINE PHENCYCLIDINE SCREEN NEGATIVE (Neg)
[2023-08-21 22:30] VITALS: BP 111/61; PULSE 80; RESP 16; TEMP 97.5; O2SAT 94
[2023-08-22] VITALS (15 sets, daily range): BP systolic 88–130; BP diastolic 48–95; PULSE 72–147; RESP 15–18; TEMP 97.8–98.4; O2SAT 91–100
[2023-08-22] MEDS: acetaminophen 325mg tablet PO SCH
[2023-08-22] MEDS: diltiazem 5mg/ml 5ml inj. IV ONE (00:55)
[2023-08-22] MEDS: normal saline 500ml IV soln 500 ML IV ONE (02:24)
[2023-08-22 07:50] LABS: BASOPHILS % (AUTO) 0.8 % (0-1); EOSINOPHILS # (AUTO) 0.1 X10'3 (0-0.9); EOSINOPHILS % (AUTO) 2.5 % (0-6); HEMATOCRIT 37.3 % (42.0-52.0); HEMOGLOBIN 12.9 g/dl (14.0-17.9); LYMPHOCYTES # (AUTO) 0.7 X10'3 (1.1-4.8); LYMPHOCYTES % (AUTO) 11.7 % (21-51); MEAN CORPUSCULAR HEMOGLOBIN 33.2 PG (27.0-31.0); MEAN CORPUSCULAR HGB CONC 34.5 g/dL (33.0-36.5); MEAN CORPUSCULAR VOLUME 96.1 FL (78-98); MEAN PLATELET VOLUME 8.4 FL (7.4-10.4); MONOCYTES # (AUTO) 0.5 X10'3 (0-0.9); MONOCYTES % (AUTO) 8.9 % (2-12); NEUTROPHILS # (AUTO) 4.3 X10'3 (1.8-7.7); NEUTROPHILS % (AUTO) 76.1 % (42-75); PLATELET COUNT 178 X10'3 (140-440); RED BLOOD COUNT 3.88 X10'6 (4.70-6.10); WHITE BLOOD COUNT 5.6 X10'3 (4.5-11.0)
[2023-08-22] MEDS ORDERED: furosemide 20 MG/2 ML vial IV SCH (08:00)
[2023-08-22 08:12] LABS: ALANINE AMINOTRANSFERASE 8 U/L (12-78); ALBUMIN/GLOBULIN RATIO 0.8 (1.1-1.5); ALKALINE PHOSPHATASE 64 IU/L (46-116); ANION GAP 9 (8-16); ASPARTATE AMINO TRANSFERASE 11 U/L (10-37); BILIRUBIN,TOTAL 1.1 MG/DL (0.1-1.0); BLOOD UREA NITROGEN 15 MG/DL (7-18); BUN/CREATININE RATIO 12.2 (10.0-20.0); CALCIUM 8.3 MG/DL (8.5-10.1); CHLORIDE 105 MMOL/L (99-107); CREATININE 1.23 MG/DL (0.60-1.10); GLUCOSE 94 MG/DL (70-104); MAGNESIUM 2.2 MG/DL (1.5-2.4); POTASSIUM 4.5 MMOL/L (3.5-5.1); SODIUM 140 MMOL/L (135-145); TOTAL CARBON DIOXIDE 25.9 MMOL/L (24-32); TOTAL PROTEIN 6.8 G/DL (6.4-8.2); eCRCL 54 ML/MIN; eGFR 57 ML/MIN
[2023-08-22 09:15] LABS: D-DIMER 0.58 MG/L FEU (0-0.50)
[2023-08-22 09:18] LABS: PHOSPHORUS 3.4 MG/DL (2.3-4.5)
[2023-08-22] MEDS: albumin (Human) 5% 250ml 250 ML IV ONE (10:44)
[2023-08-22] MEDS ORDERED: docusate sod 100mg capsule PO PRN (15:20)
[2023-08-22 16:28] LABS: APTT 41 SECONDS (22-32); INR 2.6 INR; PROTHROMBIN TIME 26.1 SECONDS (9.0-12.0)
[2023-08-22] MEDS: DOBUTamine-DoBUTrex 500mg/D5W 250 ML IV SCH (17:01)
[2023-08-22] MEDS: metoprolol succinate 25mg (24-HOUR) SR. Tablet PO SCH (20:06)
[2023-08-22] MEDS: ranolazine 500mg SR tablet (Q12H) PO SCH (20:10)
[2023-08-23] VITALS (17 sets, daily range): BP systolic 83–114; BP diastolic 41–92; PULSE 80–127; RESP 16–20; TEMP 97.3–99.7; O2SAT 95–99
[2023-08-23 07:05] LABS: BASOPHILS % (AUTO) 0.6 % (0-1); EOSINOPHILS # (AUTO) 0.2 X10'3 (0-0.9); EOSINOPHILS % (AUTO) 2.9 % (0-6); HEMOGLOBIN 12.4 g/dl (14.0-17.9); LYMPHOCYTES # (AUTO) 0.6 X10'3 (1.1-4.8); LYMPHOCYTES % (AUTO) 10.6 % (21-51); MEAN CORPUSCULAR HEMOGLOBIN 33.8 PG (27.0-31.0); MEAN CORPUSCULAR HGB CONC 35.3 g/dL (33.0-36.5); MEAN CORPUSCULAR VOLUME 95.8 FL (78-98); MEAN PLATELET VOLUME 7.9 FL (7.4-10.4); MONOCYTES # (AUTO) 0.5 X10'3 (0-0.9); MONOCYTES % (AUTO) 8.5 % (2-12); NEUTROPHILS # (AUTO) 4.5 X10'3 (1.8-7.7); NEUTROPHILS % (AUTO) 77.4 % (42-75); PLATELET COUNT 178 X10'3 (140-440); RED BLOOD COUNT 3.66 X10'6 (4.70-6.10); RED CELL DISTRIBUTION WIDTH 15.4 % (11.5-14.5); WHITE BLOOD COUNT 5.9 X10'3 (4.5-11.0)
[2023-08-23 07:13] LABS: INR 2.1 INR; PROTHROMBIN TIME 21.2 SECONDS (9.0-12.0)
[2023-08-23 07:25] LABS: ALANINE AMINOTRANSFERASE 6 U/L (12-78); ALBUMIN/GLOBULIN RATIO 0.9 (1.1-1.5); ALKALINE PHOSPHATASE 57 IU/L (46-116); ANION GAP 8 (8-16); ASPARTATE AMINO TRANSFERASE 8 U/L (10-37); BILIRUBIN,TOTAL 1.1 MG/DL (0.1-1.0); BLOOD UREA NITROGEN 15 MG/DL (7-18); BUN/CREATININE RATIO 13.4 (10.0-20.0); CALCIUM 8.4 MG/DL (8.5-10.1); CHLORIDE 105 MMOL/L (99-107); CREATININE 1.12 MG/DL (0.60-1.10); GLUCOSE 92 MG/DL (70-104); MAGNESIUM 2.1 MG/DL (1.5-2.4); POTASSIUM 4.6 MMOL/L (3.5-5.1); SODIUM 137 MMOL/L (135-145); TOTAL CARBON DIOXIDE 23.9 MMOL/L (24-32); TOTAL PROTEIN 6.4 G/DL (6.4-8.2); eCRCL 59 ML/MIN; eGFR 63 ML/MIN
[2023-08-23] MEDS: spironolactone 25 MG tablet PO SCH (08:28)
[2023-08-23] MEDS: isosorbide mononitrate 30mg tab.SR.24H PO SCH (08:28)
[2023-08-23] MEDS: lisinopril 5mg tablet PO SCH (08:29)
[2023-08-23] MEDS: atorvastatin 20mg tablet PO SCH (08:29)
[2023-08-23] MEDS ORDERED: diltiazem-D5W 125mg/125ml 125 ML IV SCH (10:05)
[2023-08-23] MEDS ORDERED: albumin (human) 25% 100ml IV 100 ML in dextrose 5% water 500ml 400 ML IV ONE (10:10)
[2023-08-23] MEDS: albumin (Human) 5% 250ml 500 ML IV ONE (11:00)
[2023-08-23 12:14] LABS: HEMOGLOBIN A1C 4.9 % (4.5-6.2)
[2023-08-23] MEDS: diltiazem-NS 100mg/100ml 100 ML IV SCH (13:34)
[2023-08-23] MEDS: metoprolol succinate 25mg (24-HOUR) SR. Tablet PO ONE (14:51)
[2023-08-23] MEDS ORDERED: SACU1TAB7 PO (16:01)
[2023-08-23] MEDS ORDERED: GABA300C PO (16:01)
[2023-08-23] MEDS ORDERED: EMPA10TA PO (16:01)
[2023-08-23] MEDS ORDERED: NITR0.4T51 SL (16:01)
[2023-08-23] MEDS: warfarin 5mg tablet PO SCH (20:09)
[2023-08-23] MEDS: magnesium oxide 400mg tablet PO SCH (20:10)
[2023-08-23] MEDS: metoprolol succinate 25mg (24-HOUR) SR. Tablet PO SCH (20:12)
[2023-08-24] VITALS (8 sets, daily range): BP systolic 78–107; BP diastolic 50–77; PULSE 69–102; RESP 13–26; TEMP 97–98.1; O2SAT 95–98
[2023-08-24 09:00] LABS: BASOPHILS % (AUTO) 0.6 % (0-1); EOSINOPHILS # (AUTO) 0.2 X10'3 (0-0.9); EOSINOPHILS % (AUTO) 3.1 % (0-6); HEMATOCRIT 36.2 % (42.0-52.0); HEMOGLOBIN 12.4 g/dl (14.0-17.9); LYMPHOCYTES # (AUTO) 0.5 X10'3 (1.1-4.8); LYMPHOCYTES % (AUTO) 9.1 % (21-51); MEAN CORPUSCULAR HEMOGLOBIN 33.1 PG (27.0-31.0); MEAN CORPUSCULAR HGB CONC 34.4 g/dL (33.0-36.5); MEAN CORPUSCULAR VOLUME 96.2 FL (78-98); MEAN PLATELET VOLUME 8.4 FL (7.4-10.4); MONOCYTES # (AUTO) 0.3 X10'3 (0-0.9); MONOCYTES % (AUTO) 5.8 % (2-12); NEUTROPHILS # (AUTO) 4.9 X10'3 (1.8-7.7); NEUTROPHILS % (AUTO) 81.4 % (42-75); PLATELET COUNT 174 X10'3 (140-440); RED BLOOD COUNT 3.76 X10'6 (4.70-6.10); RED CELL DISTRIBUTION WIDTH 15.7 % (11.5-14.5)
[2023-08-24 09:16] LABS: INR 1.5 INR; PROTHROMBIN TIME 15.3 SECONDS (9.0-12.0)
[2023-08-24 09:34] LABS: ALANINE AMINOTRANSFERASE 7 U/L (12-78); ALBUMIN 3.2 G/DL (3.4-5.0); ALBUMIN/GLOBULIN RATIO 0.9 (1.1-1.5); ALKALINE PHOSPHATASE 58 IU/L (46-116); ANION GAP 9 (8-16); ASPARTATE AMINO TRANSFERASE 9 U/L (10-37); BILIRUBIN,TOTAL 1.2 MG/DL (0.1-1.0); BLOOD UREA NITROGEN 20 MG/DL (7-18); BUN/CREATININE RATIO 15.9 (10.0-20.0); CALCIUM 8.7 MG/DL (8.5-10.1); CHLORIDE 105 MMOL/L (99-107); CREATININE 1.26 MG/DL (0.60-1.10); GLUCOSE 122 MG/DL (70-104); POTASSIUM 4.9 MMOL/L (3.5-5.1); SODIUM 136 MMOL/L (135-145); TOTAL CARBON DIOXIDE 22.3 MMOL/L (24-32); TOTAL PROTEIN 6.8 G/DL (6.4-8.2); eCRCL 53 ML/MIN; eGFR 55 ML/MIN
== END 2023-08-24 16:25 | disposition home or self-care (01) | DRG 291 ==
LOC: ER 16:07 → ED HOLD 19:42 → EDBEDREQ 21:41 → PCU 3S 22:05
PROVIDERS: ADMIT Internal Medicine; ATTEND Family Medicine
DX: I13.0 Hypertensive heart and chronic kidney disease with heart failure and stage 1 through stage 4 chronic kidney disease, or unspecified chronic kidney disease (principal); I50.23 Acute on chronic systolic (congestive) heart failure; N17.0 Acute kidney failure with tubular necrosis; I48.11 Longstanding persistent atrial fibrillation; G89.29 Other chronic pain; M54.9 Dorsalgia, unspecified; N18.9 Chronic kidney disease, unspecified; E78.00 Pure hypercholesterolemia, unspecified; D64.9 Anemia, unspecified; F12.90 Cannabis use, unspecified, uncomplicated; I27.20 Pulmonary hypertension, unspecified; E86.1 Hypovolemia; E86.0 Dehydration; Z79.899 Other long term (current) drug therapy; Z79.01 Long term (current) use of anticoagulants; Z95.1 Presence of aortocoronary bypass graft
CPT/HCPCS: 36415; 71045; 80048; 80053; 80305; 81001; 83036; 83735; 83880; 84100; 84484; 85025; 85379; 85610; 85730; 87081; 93005; 93306; 97116; 97161; 97530; 99285; A6258; G0378; J1250; J1644; J1940; J3490; J7030; J7040; P9045